=== PATIENT | male | born 1960 | race Caucasian/White ===

== ENCOUNTER → 2019-06-25 | Outpatient (CLI) | payer OTHER | LOC: CAT 09:12 | DX: J98.4 Other disorders of lung (principal); J18.1 Lobar pneumonia, unspecified organism; J98.11 Atelectasis; R59.0 Localized enlarged lymph nodes ==

== ENCOUNTER 2019-07-15 06:10 | Outpatient (CLI) | payer OTHER ==
[~2019-07-15] VITALS: Ht 177.8 cm; Wt 93.0 kg
[~2019-07-15 06:10] MED LIST: LEVO-T175 MCG PO
[2019-07-15 07:10] VITALS: BP 138/73
--- NOTE | 2019-07-19 17:07 | PATH ---
[facility] [address] [email or web address] [address] PATHOLOGY RPT PROCEDURE Name: CRICKET SHAW Room #: DEP ROXY Dae#: [id number] Admission: 07/15/19 Date of : 62 Discharge: 07/15/19 Report #: [id number] Path Case #: [id number] Note LCA Accession Number: [id number] TESTS RESULT FLAG UNITS REF RANGE LAB Clinician Provided Cytology Information No. of containers..01 Other (Miscellaneous) Source: RUL BRONCH BRUSING DIAGNOSIS: RUL BRONCH BRUSING NEGATIVE FOR MALIGNANT CELLS. NORMAL BRONCHIAL CELLS ARE PRESENT. Pathologist ICD10: 02 R91.8 Signed out by: 02 Olga Davis MD, Pathologist NPI- [id number] Performed by: 01 Belle Gambino Insurance Case Manager ([facility]) Gross description: 01 15ML, PRISCA SINGER /GAYATRI 07/16/2019 1707 Local FLAG LEGEND: L-Low Normal,H-High Normal,LL-Alert Low,HH-Alert High <-Panic Low,>-Panic High,A-Abnormal,AA-Critical Abnormal Performed at: [address] [place] [address] Kristopher Aguirre MD, [address] [address] Olga Davis MD, Performed at: [address], [place], [place] [id number] MD Kristopher Aguirre MD Phone: [phone]
--- NOTE | 2019-07-19 17:07 | PATH ---
[facility] [address] [place] [address] PATHOLOGY RPT PROCEDURE Name: CRICKET SHAW Room #: DEP ROXY NicoleNamitaTaco.#: [id number] Admission: 07/15/19 Date of : 62 Discharge: 07/15/19 Report #: [id number] Path Case #: [id number] Note LCA Accession Number: [id number] TESTS RESULT FLAG UNITS REF RANGE LAB Clinician Provided Cytology Information No. of containers..01 Other (Miscellaneous) Source: 01 RUL #2 PASS DIAGNOSIS: RUL #2 PASS NEGATIVE FOR MALIGNANT CELLS. NORMAL BRONCHIAL CELLS ARE PRESENT. SPECIMEN PREDOMINANTLY COMPRISED OF BLOOD. SCANT CELLULARITY. Pathologist ICD10: 02 R91.8 Signed out by: 02 Olga Davis MD, Pathologist NPI- [id number] Performed by: Belle Gambino Php Mysql Web Developer ([facility]) Gross description: 2 AF /LCS 07/16/2019 1704 Local FLAG LEGEND: L-Low Normal,H-High Normal,LL-Alert Low,HH-Alert High <-Panic Low,>-Panic High,A-Abnormal,AA-Critical Abnormal Performed at: [address] [place] [address] Kristopher Aguirre MD, [address] [address] Olga Davis MD, Specimen Comment: [id number] Performed at: [address], [place], [place] [id number] MD Kristopher Aguirre MD Phone: [phone]
--- NOTE | 2019-07-19 17:07 | PATH ---
[facility] [address] [place] [address] PATHOLOGY RPT PROCEDURE Name: CRICKET SHAW Room #: DEP ROXY MEstefania.#: [id number] Admission: 07/15/19 Date of : 62 Discharge: 07/15/19 Report #: [id number] Path Case #: [id number] Note LCA Accession Number: [id number] TESTS RESULT FLAG UNITS REF RANGE LAB Clinician Provided Cytology Information No. of containers..01 Other (Miscellaneous) Source: SUBCARINAL BIOPSY DIAGNOSIS: SUBCARINAL BIOPSY NO LYMPH NODE TISSUE PRESENT. RARE GROUP OF REACTIVE BRONCHIAL EPITHELIAL CELLS PRESENT. SCANT CELLULARITY. THIS INTERPRETATION INCLUDES EVALUATION OF A CELL BLOCK. Pathologist ICD10: 02 R91.8 Signed out by: 02 Olga Davis MD, Pathologist NPI- [id number] Performed by: 01 Belle Gambino, Division Officer Weapons Department ([facility]) Gross description: 01 10ML, MONA KAUR /GAYATRI 07/16/2019 1705 Local FLAG LEGEND: L-Low Normal,H-High Normal,LL-Alert Low,HH-Alert High <-Panic Low,>-Panic High,A-Abnormal,AA-Critical Abnormal Performed at: [address] [place] [address] Kristopher Aguirre MD, [address] [address] Olga Davis MD, Performed at: [address], [place], [place] [id number] MD Kristopher Aguirre MD Phone: [phone]
--- NOTE | 2019-07-19 17:07 | PATH ---
[facility] [address] [address] PATHOLOGY RPT PROCEDURE Name: CRICKET SHAW Room #: DEP ROXY Avril.#: [id number] Admission: 07/15/19 Date of : 62 Discharge: 07/15/19 Report #: [id number] Path Case #: [id number] Note LCA Accession Number: [id number] TESTS RESULT FLAG UNITS REF RANGE LAB Clinician Provided Cytology Information No. of containers..01 Other (Miscellaneous) Source: COSTAL LOBE BIOPS DIAGNOSIS: LT COSTAL LOBE BIOPS INADEQUATE, INSUFFICIENT CELLS FOR STUDY. ESSENTIALLY ACELLULAR SPECIMEN. THIS INTERPRETATION INCLUDES EVALUATION OF A CELL BLOCK. Pathologist ICD10: 02 R91.8 Signed out by: 02 Olga Davis MD, Pathologist NPI- [id number] Performed by: Belle Gambino, Laboratory Tester ([facility]) Gross description: 01 10ML, PRISCA LEVY /GAYATRI 07/16/2019 1710 Local FLAG LEGEND: L-Low Normal,H-High Normal,LL-Alert Low,HH-Alert High <-Panic Low,>-Panic High,A-Abnormal,AA-Critical Abnormal Performed at: [address] [place] [address] Kristopher Aguirre MD, [address] [place] [address] [address] Olga Davis MD, Performed at: [address], [place], [place] [id number] MD Kristopher Aguirre MD Phone: [phone]
--- NOTE | 2019-07-19 17:07 | PATH ---
[facility] [address] [place] [address] PATHOLOGY RPT PROCEDURE Name: CRICKET SHAW Room #: DEP ROXY NicoleNamiatTacoNamita#: [id number] Admission: 07/15/19 Date of : 62 Discharge: 07/15/19 Report #: [id number] Path Case #: [id number] Note LCA Accession Number: [id number] TESTS RESULT FLAG UNITS REF RANGE LAB Clinician Provided Cytology Information No. of containers..01 Other (Miscellaneous) Source: NEEDLE BIO RUL DIAGNOSIS: NEEDLE BIO RUL INADEQUATE, INSUFFICIENT CELLS FOR STUDY. ESSENTIALLY ACELLULAR SPECIMEN. THIS INTERPRETATION INCLUDES EVALUATION OF A CELL BLOCK. Pathologist ICD10: 02 R91.8 Signed out by: 02 Olga Davis MD, Pathologist NPI- [id number] Performed by: 01 Belle Gambino, Mold Construction Supervisor ([facility]) Gross description: 01 12ML, PRISCA LEVIN /GAYATRI 07/16/2019 1712 Local FLAG LEGEND: L-Low Normal,H-High Normal,LL-Alert Low,HH-Alert High <-Panic Low,>-Panic High,A-Abnormal,AA-Critical Abnormal Performed at: [address] [place] [address] Kristopher Aguirre MD, [address] [address] Olga Davis MD, Performed at: [address], [place], [place] [id number] MD Kristopher Aguirre MD Phone: [phone]
--- NOTE | 2019-07-20 13:07 | PATH ---
[facility] [address] [place] [address] PATHOLOGY RPT PROCEDURE Name: CRICKET SHAW Room #: DEP ROXY Dae#: [id number] Admission: 07/15/19 Date of : 62 Discharge: 07/15/19 Report #: [id number] Path Case #: [id number] Note LCA Accession Number: [id number] TESTS RESULT FLAG UNITS REF RANGE LAB Clinician Provided Cytology Information No. of containers..01 Other (Miscellaneous) Source: RUL FNA #1 PASS DIAGNOSIS: RUL FNA #1 PASS NEGATIVE FOR MALIGNANT CELLS. NORMAL BRONCHIAL CELLS ARE PRESENT. Pathologist ICD10: 02 R91.8 Signed out by: 02 Olga Davis MD, Pathologist NPI- [id number] Performed by: 01 Belle Gambino Doughnut Fryer ([facility]) Gross description: Rukhsana HOUSE /GAYATRI 07/16/2019 1659 Local FLAG LEGEND: L-Low Normal,H-High Normal,LL-Alert Low,HH-Alert High <-Panic Low,>-Panic High,A-Abnormal,AA-Critical Abnormal Performed at: [address] [place] [address] Kristopher Aguirre MD, [address] [address] Olga Davis MD, Specimen Comment: A courtesy copy of this report has been sent to [phone] Specimen Comment: [id number] Specimen Comment: Report sent to Specimen Comment: A duplicate report has been generated due to demographic updates. Performed at: [address], [place], [place] [id number] MD Kristopher Aguirre MD Phone: [phone]
== END 2019-07-15 10:45 | disposition home or self-care (01) ==
LOC: TBA 06:10 → PUL 06:10 → TBA 06:12 → PUL 10:45 → GI 13:04 → EDSTATUS 13:11
DX: R91.8 Other nonspecific abnormal finding of lung field (principal); Z98.890 Other specified postprocedural states; Z79.899 Other long term (current) drug therapy; Z87.01 Personal history of pneumonia (recurrent)
CPT/HCPCS: 62110; 62900; 70005